=== PATIENT | female | born 1965 | race Caucasian/White ===

== ENCOUNTER 2020-12-06 23:10 | Emergency (ER) | payer BC ==
[2020-12-06 23:19] VITALS: BP 161/82; PULSE 78; TEMP 98.8; BMI 28.8
[2020-12-07] MEDS ORDERED: MECLIZINE HCL 25 MG TABLET (FP) PO ONE (00:13)
[2020-12-07] MEDS ORDERED: MECLIZINE HCL 25 MG TABLET (FP) ONE (00:28)
== END 2020-12-07 03:43 | disposition home or self-care (01) ==
LOC: JER 23:10
DX: R42 Dizziness and giddiness (principal)
CPT/HCPCS: 70450-TC; 82962; 99284-25